=== PATIENT | male | born 1990 | race African-American/Black ===

== ENCOUNTER 2021-06-13 20:48 | Emergency (ER) | payer OTHER ==
[~2021-06-13] VITALS: Ht 195.6 cm; Wt 106.8 kg
[2021-06-13 20:53] VITALS: TEMP 98.1
[2021-06-13 21:31] LABS: COLLECTION METHOD CLEAN CATCH
[2021-06-13 21:36] LABS: MUCOUS Present /lpf; PH 5 (5-8); SQUAMOUS EPITHELIAL 0-2 /hpf; URINE APPEARANCE Clear; URINE BACTERIA None Seen /hpf; URINE BILIRUBIN Negative (NEGATIVE); URINE BLOOD Negative (NEGATIVE); URINE COLOR Yellow; URINE GLUCOSE 2+ (NEGATIVE); URINE KETONE Trace (NEGATIVE); URINE LEUKOCYTE ESTERASE Negative (NEGATIVE); URINE NITRATE Negative (NEGATIVE); URINE PROTEIN(semi-quant) 2+ (NEGATIVE); URINE RBC 0-2 /hpf; URINE UROBILINOGEN Negative (NEGATIVE)
[2021-06-13 22:02] VITALS: BP 140/85; PULSE 89
== END 2021-06-13 22:05 | disposition home or self-care (01) ==
LOC: COL.ER 20:48
PROVIDERS: Emergency Medicine
DX: M54.9 Dorsalgia, unspecified (principal); R73.9 Hyperglycemia, unspecified; G35 Multiple sclerosis; Z87.891 Personal history of nicotine dependence
CPT/HCPCS: J1885